=== PATIENT | female | born 1965 ===

== ENCOUNTER 2020-11-25 05:35 | Day surgery (SDC) | payer OTHER ==
[2020-11-25] MEDS ORDERED: PERCOCET 5-3251 EACH PO (11:13)
== END 2020-11-25 13:40 | disposition home or self-care (01) ==
LOC: CIR.AMB 05:35
PROVIDERS: ATTEND Surgery
DX: D12.8 Benign neoplasm of rectum (principal); D12.9 Benign neoplasm of anus and anal canal; K62.82 Dysplasia of anus; K64.8 Other hemorrhoids; Z20.822 Contact with and (suspected) exposure to COVID-19